=== PATIENT | male | born 2000 | race Caucasian/White ===

== ENCOUNTER 2018-08-21 19:14 | Outpatient (REF) | payer SELFPAY ==
[2018-08-24 15:22] LABS: Chlamydia Result Negative; GC Result Negative; Specimen Description URINE
== END 2018-08-21 19:34 ==
LOC: LBN 19:14
PROVIDERS: PCP Pediatrics; Visit Provider Nurse Practitioner Family
DX: R30.0 Dysuria (principal)
CPT/HCPCS: 87491; 87591

== ENCOUNTER 2019-06-15 14:42 | Emergency (ER) | payer OTHER, SELFPAY ==
[2019-06-15 15:06] VITALS: BP 113/54; PULSE 63; RESP 16; TEMP 36.7; O2SAT 100
--- NOTE | 2019-06-15 16:36 | ED.GENADUL_ITS ---
Discharge Plan Disposition Patient Disposition: HOME Condition: Stable Discharge Details Chief Complaint: GenMedical Clinical Impression: Insect bite Primary Care Provider: Lorenzo Mcfarland ED Provider: Catrachito Henley Home Meds and New Rx's Prescriptions: New doxycycline hyclate 100 mg capsule 100 mg PO BID 14 Days Qty: 28 RF: 0 Discharge Instructions Instructions: Insect Bite or Sting (ED) Additional Instructions: Please take antibiotics as prescribed and follow-up with primary care provider if not improving over the next week. Return immediately to the emergency depa rtment for any new or significant worsening of symptoms. While on doxycycline be very aware this can make your skin photosensitive so please use sunscreen. Referrals: Lorenzo Mcfarland MD [Primary Care Provider] - (If not improving the next week) Discharge Data Discharge Date/Time-TO BE ENTERED AT DEPARTURE: 06/15/19 16:51 Medical Decision Making Patient presenting to the emergency department chief complaint of rash. Patient states that this occurred 5days ago. Patient reports some subjective fever and chills but otherwise denies any other associated symptoms. Physical exam is unremarkable except for erythema with slight ecchymosis and a bull's-eye type pattern to the right inner thigh. This area is not indurated or tender, slightly warm to touch. Area is concerning for possible cellulitis but also of consideration is possible tickborne illness. Patient denies any known tick bites in that area but does state that he has potential for exposure and possible tick bite. Given question of potentially being both I do feel that coverage with Keflex and doxycycline is warranted. Return precautions were d iscussed. After discussion of diagnosis and plan of care patient has no further needs, questions, or concerns and states clear understanding to return to the emergency department for any worsening symptoms. HPI General Mode of arrival: ambulatory . Date/Time Provider Initiated Documentation: 06/15/19 16:25 . Limitations to Documentation: no limitations . Information obtained by: patient and RN notes reviewed . History of Present Illness 18 year old M presents to the emergency department with the chief complaint of Insect bite, rash, described as mild, Quality is described as other (Denies pain or discomfort), and is localized to the right and lower extremity. Patient started experiencing this day(s) (5) No relieving factors improve symptom(s), Patient did receive the following treatments prior to arrival, none Related Data Home Medications Medication Instructions Recorded Confirmed doxycycline hyclate 100 mg PO BID 14 Days #28 cap 06/15/19 Previous Rx's Medication Instructions Recorded doxycycline hyclate 100 mg PO BID 14 Days #28 cap 06/15/19 Allergies Allergy/AdvReac Type Severity Reaction Status Date / Time No Known Allergies Allergy Unverified 08/21/18 15:38 General Stated Complaint: GenMedical JOLLY: 4 Review of Systems Constitutional Denies body ache(s), Reports fever(s) and Denies headache(s) ENT Denies headache(s) Musculoskeletal Denies myalgias, Denies arthralgias and Denies joint swelling Integumentary/Breasts Reports as per HPI, Denies erythema and Denies rash Neurologic Denies headache(s) and Denies paresthesias PFSH Medical History Proteinuria Social History Smoking/Tobacco Use Status: Never Drug use: Never Exam Const General: cooperative, comfortable and no acute distress Orientation: alert, awake and oriented x3 Resp Effort & Inspection: normal respiratory effort and able to speak in complete sentences Skin General skin exam: erythema (Circular area with central bite lorenzo consistent with insect/tick bite), no fluctuance and no induration Rashes: rashes noted patches right posterior upper leg size (4cm), arrangement bulls-eye, borders sharp, color red and surface erythematous; fluctuant not assessed and nontender Neuro General: alert, awake and oriented x3 Course Vital Signs Temperature 36.7 C 06/15/19 15:06 Pulse 63 06/15/19 15:06 Respiratory Rate 16 06/15/19 15:06 Blood Pressure 113/54 L 06/15/19 15:06 Pulse Oximetry 100 06/15/19 15:06 Temperature 36.7 C 06/15/19 15:06 Temperature Source Skin 06/15/19 15:06 Pulse 63 06/15/19 15:06 Respiratory Rate 16 06/15/19 15:06 Blood Pressure 113/54 L 06/15/19 15:06 Pulse Oximetry 100 06/15/19 15:06 Oxygen Delivery Method Room Air 06/15/19 15:06 Oxygen Flow Rate 0 06/15/19 15:06 Pain Level 0 06/15/19 15:06
== END 2019-06-15 16:51 | disposition home or self-care (01) ==
PROVIDERS: Emergency Provider Nurse Practitioner Family; PCP Pediatrics
DX: S80.861A Insect bite (nonvenomous), right lower leg, initial encounter (principal); W57.XXXA Bitten or stung by nonvenomous insect and other nonvenomous arthropods, initial encounter
CPT/HCPCS: 99282